=== PATIENT | male | born 1985 ===

== ENCOUNTER 2018-05-16 21:01 | Emergency (ER) | payer OTHER ==
[~2018-05-16] VITALS: Ht 167.6 cm; Wt 83.9 kg
[2018-05-16] MEDS ORDERED: HYDR1TAB94 PO (21:53)
== END 2018-05-16 22:46 | disposition home or self-care (01) ==
LOC: EDBD 21:01 → ER 21:01
DX: S52.602A Unspecified fracture of lower end of left ulna, initial encounter for closed fracture (principal); V49.9XXA Car occupant (driver) (passenger) injured in unspecified traffic accident, initial encounter
CPT/HCPCS: 29125; 73090; 73130; 99284-25